=== PATIENT | male | born 1970 | race Caucasian/White ===

== ENCOUNTER 2020-03-09 07:32 | Day surgery (SDC) | payer OTHER ==
[~2020-03-09] VITALS: Ht 170.2 cm; Wt 76.2 kg
--- NOTE | 2020-03-09 07:54 | NUR ---
PACIENTE ALERTA, ORIENTADO X 3 REFIERE TENER NACIDO EN AREA SACRAL ENTRE MEDIO DE LOS GLUTEOS, SE OBSERVA AREA LAURA Y SUPURANDO. HACE AGUSTÍN SEMANA, ESTA EN BACTRIN. PTE HIV.
[2020-03-09] MEDS ORDERED: GENVOYA TABLET1 EACH (07:57)
[2020-03-09] MEDS ORDERED: BACTRIM DS TAB1 EACH (07:57)
[2020-03-09] MEDS ORDERED: CHLORHEXIDINE118 ML TOP (07:58)
--- NOTE | 2020-03-09 08:55 | NUR ---
PACIENTE ALERTA Y ORIENTADO EN PATRICA CARO ESFERAS. SE ORIENTA A PACIENTE SOBRE PROCEDIMIENTO Y TX, REFIERE ENTENDER. SE EXTRAE MUESTRAS DE LABORATORIO CON MEDIDAS ASEPTICAS Y SE ADMINISTRA MEDICAMENTOS ALVA ORDEN MEDICA.
[2020-03-09] MEDS ORDERED: PERCOCET 5-3251 EACH PO (12:44)
[2020-03-09] MEDS ORDERED: NEURONTIN300 MG PO (12:44)
[2020-03-09] MEDS ORDERED: CIPRO500 MG PO (13:03)
[2020-03-09] MEDS ORDERED: METRONIDAZOLE500 MG PO (13:03)
== END 2020-03-09 14:00 | disposition home or self-care (01) ==
LOC: ER 07:32 → O/R 07:46 → SEC-K 07:46 → EDSTATUS 08:00 → CIR.AMB 09:00 → SEC-K 10:22 → O/R 10:22 → CIR.AMB 14:00 → SEC-K 14:45 → O/R 14:45
DX: K61.0 Anal abscess (principal); Z21 Asymptomatic human immunodeficiency virus [HIV] infection status